=== PATIENT | female | born 1990 | race Caucasian/White ===

== ENCOUNTER 2023-10-22 07:45 | Emergency (ER) | payer BC ==
[2023-10-22] MEDS ORDERED: Sodium Chloride 0.9% 10 ML Syringe FLUSH PRN (07:57)
[2023-10-22] MEDS: Sodium Chloride 0.9% 10 ML Syringe FLUSH PRN (08:10)
[2023-10-22 08:11] LABS: BASOPHILS ABSOLUTE AUTO 0.05 K/uL (0.00-0.10); BASOPHILS PERCENT AUTO 0.3 % (0.1-1.3); EOSINOPHILS ABSOLUTE AUTO 0.09 K/uL (0.00-0.40); EOSINOPHILS PERCENT AUTO 0.6 % (0.0-5.4); HEMATOCRIT 42.2 % (34.3-46.0); HEMOGLOBIN 14.2 g/dL (11.2-15.5); IMMATURE GRAN ABSOLUTE AUTO 0.12 K/uL (0.00-0.23); IMMATURE GRAN PERCENT AUTO 0.8 % (0.0-0.7); LYMPHOCYTES ABSOLUTE AUTO 2.36 K/uL (0.8-3.3); MEAN CORPUSCULAR HEMOGLOBIN 30.1 pg (31.6-35.5); MEAN CORPUSCULAR HGB CONC 33.6 g/dL (31.6-35.5); MEAN CORPUSCULAR VOLUME 89.4 fL (81.4-99.0); MONOCYTES ABSOLUTE AUTO 1.17 K/uL (0.20-0.90); MONOCYTES PERCENT AUTO 7.4 % (3.3-12.6); NEUTROPHILS ABSOLUTE AUTO 11.96 K/uL (1.0-7.6); NEUTROPHILS PERCENT AUTO 75.9 % (40.0-78.1); PLATELET COUNT,PLT 202 K/uL (130-375); RED BLOOD CELL COUNT 4.72 M/uL (3.77-5.24); WHITE BLOOD CELL COUNT,WBC 15.8 K/uL (3.2-11.0)
[2023-10-22] MEDS: Labetalol 20 MG/4 ML Syringe IVPUSH ONE (08:11)
[2023-10-22 08:33] LABS: A/G RATIO 0.6 (1.2-2.2); ALANINE AMINOTRANSFERASE,ALT 16 U/L (12-78); ALBUMIN 2.9 g/dL (3.4-5.0); ALKALINE PHOSPHATASE 162 U/L (46-116); ANION GAP 13.5 mmol/L (5.0-14.0); ASPARTATE AMNIOTRANSFERASE,AST 15 U/L (15-37); BILIRUBIN TOTAL 0.3 mg/dL (0.2-1.0); BLOOD UREA NITROGEN,BUN 8 mg/dL (7-18); CALCIUM 8.9 mg/dL (8.5-10.1); CARBON DIOXIDE,CO2 23 mmol/L (21-32); CHLORIDE,CL 100 mmol/L (100-108); CREATININE 0.7 mg/dL (0.6-1.0); EST CRCL DRUG DOSING (CG) 83.64 mL/min; ESTIMATED GFR 119 mL/min (>60); GLUCOSE RANDOM 101 mg/dL (74-106); INR 0.9; MAGNESIUM 1.5 mg/dL (1.8-2.4); POTASSIUM,K 3.5 mmol/L (3.6-5.2); PROTEIN TOTAL,TP 7.8 g/dL (6.4-8.2); PROTHROMBIN TIME 9.1 sec (9.2-10.6); PTT,PARTIAL THROMBOPLSTIN TIME 28.9 sec (21.8-27.3); SODIUM,NA 133 mmol/L (140-148)
[2023-10-22 09:14] LABS: APPEARANCE,URINE CLEAR (CLEAR); BILIRUBIN,URINE NEGATIVE (NEGATIVE); COLOR,URINE YELLOW (YELLOW); GLUCOSE,URINE NEGATIVE (NEGATIVE); KETONES,URINE NEGATIVE (NEGATIVE); LEUKOCYTE ESTERASE,URINE TRACE (NEGATIVE); NITRITE,URINE NEGATIVE (NEGATIVE); OCCULT BLOOD,URINE NEGATIVE (NEGATIVE); PH,URINE 6.5 (5.0-8.0); PROTEIN,URINE NEGATIVE (NEGATIVE); UROBILINOGEN,URINE 0.2 EU/dL (0.2-1.0)
[2023-10-22 09:20] LABS: AMPHETAMINES SCREEN, URINE NEGATIVE (NEGATIVE); BARBITURATE SCREEN,URINE NEGATIVE (NEGATIVE); BENZODIAZEPINES SCREEN,URINE NEGATIVE (NEGATIVE); METHADONE SCREEN, URINE NEGATIVE (NEGATIVE); METHAMPHETAMINES SCREEN, URINE NEGATIVE (NEGATIVE); OXYCODONE SCREEN,URINE NEGATIVE (NEGATIVE); PROPOXYPHENE SCREEN,URINE NEGATIVE (NEGATIVE); THC SCREEN,URINE 50 NG/ML NEGATIVE (NEGATIVE)
[2023-10-22 09:21] LABS: AMORPHOUS SEDIMENT,URINE MODERATE; BACTERIA,URINE MANY; EPITHELIAL CELLS,URINE MODERATE; MUCUS,URINE FEW; RBC,URINE 0-5 (0-5)
[2023-10-22 09:28] LABS: CREATININE,URINE RAND 31.1 mg/dL (20.0-370.0); PROTEIN,URINE RANDOM 27.7 mg/dL (6.0-11.9)
[2023-10-22] MEDS ORDERED: Magnesium Sulfate/Water 6 GM in Premix Bag 1 BAG IV SCH (10:15)
[2023-10-22] MEDS ORDERED: Labetalol 20 MG/4 ML Syringe IVPUSH ONE (10:17)
[2023-10-22] MEDS: Magnesium Sulfate/Water 2 GM in Premix Bag 1 BAG IV SCH (10:18)
== END 2023-10-22 11:00 | disposition home or self-care (01) ==
LOC: JP.ED 07:45
DX: O24.419 Gestational diabetes mellitus in pregnancy, unspecified control (principal); O14.10 Severe pre-eclampsia, unspecified trimester; O99.891 Other specified diseases and conditions complicating pregnancy; Z3A.01 Less than 8 weeks gestation of pregnancy; R10.10 Upper abdominal pain, unspecified; R82.71 Bacteriuria; R82.81 Pyuria
CPT/HCPCS: 36415; 80053; 80305; 81001; 82570; 83735; 84156; 85025; 85610; 85730; 86850; 86900; 86901; 87086; 93005; 96365; 96375; 99285; J1920; J3475; J3490; 87088